=== PATIENT | female | born 1965 | race Hispanic/Latino ===

== ENCOUNTER 2018-07-10 15:19 | Outpatient (CLI) | payer OTHER | END 2018-07-10 15:20 | disposition home or self-care (01) | LOC: BICRAD 15:19 | PROVIDERS: ATTEND Family Medicine | DX: M25.511 Pain in right shoulder (principal); M19.011 Primary osteoarthritis, right shoulder ==

== ENCOUNTER 2018-07-24 14:52 | Outpatient (CLI) | payer OTHER | END 2018-07-24 14:53 | disposition home or self-care (01) | LOC: BICMAMMO 14:52 | PROVIDERS: ATTEND Family Medicine | DX: N63.0 Unspecified lump in unspecified breast (principal) | CPT/HCPCS: 77066 ==

== ENCOUNTER 2020-05-02 17:54 | Emergency (ER) | payer OTHER ==
[2020-05-03 14:06] LABS: SARS-CoV-2 MS2 Positive; SARS-CoV-2 N Gene Negative; SARS-CoV-2 S Gene Negative; SARS-CoV-2 orf1ab Negative
== END 2020-05-02 18:44 | disposition home or self-care (01) ==
LOC: ERS 17:54
DX: Z20.828 Contact with and (suspected) exposure to other viral communicable diseases (principal); I10 Essential (primary) hypertension; J45.909 Unspecified asthma, uncomplicated; E11.9 Type 2 diabetes mellitus without complications; F41.9 Anxiety disorder, unspecified; Z79.84 Long term (current) use of oral hypoglycemic drugs; Z79.899 Other long term (current) drug therapy
CPT/HCPCS: 87635; 99283; U0003

== ENCOUNTER 2020-09-06 17:33 | Emergency (ER) | payer OTHER ==
[2020-09-06 18:09] LABS: #Basophils 0.1 thou/uL (0.0-0.2); #Eosinphils 0.1 thou/uL (0.0-0.7); #Lymphocytes 1.7 thou/uL (1.20-3.40); #Monocytes 0.5 thou/uL (0.11-0.59); #Neutrophils 3.4 thou/uL (1.40-6.50); %Basophils 1.2 % (0.0-1.0); %Eosinophils 1.9 % (0.0-10.0); %Lymphocytes 29.7 % (21.0-51.0); %Monocytes 9.1 % (0.0-10.0); %Neutrophils 58.2 % (42.0-75.0); Hemoglobin 12.9 g/dL (12.0-16.0); Mean Corpuscular Hemoglobin 24.3 pg (27.0-31.0); Mean Corpuscular Volume 75.8 fL (78.0-98.0); Mean Platelet Volume 10.6 fL (7.4-10.4); Platelet Count 186 thou/uL (130-400); RBC Distribution Width 17.3 % (11.5-14.5); Red Blood Cell (RBC) Count 5.32 mill/uL (4.20-5.40); White Blood Cell (WBC) Count 5.8 thou/uL (4.8-10.8)
[2020-09-06 18:23] LABS: ALT (SGPT) 32 U/L (8-55); AST (SGOT) 31 U/L (5-34); Albumin 4.2 g/dL (3.5-5.0); Alkaline Phosphatase 142 U/L (40-110); Anion Gap 14 mmol/L (10-20); BUN (Urea Nitrogen) 12 mg/dL (9.8-20.1); Bilirubin, Total 0.3 mg/dL (0.2-1.2); CK (CPK) 65 U/L (29-168); Calc. Creatinine Clearance 0 mL/min (70-130); Calcium 9.4 mg/dL (7.8-10.44); Carbon Dioxide 23 mmol/L (22-29); Chloride 101 mmol/L (98-107); Estimated GFR-MDRD 59; Globulin 3.6 g/dL (2.4-3.5); Glucose 465 mg/dL (70-105); Potassium 4.2 mmol/L (3.5-5.1); Protein, Total 7.8 g/dL (6.0-8.3); Sodium 134 mmol/L (136-145)
[2020-09-06] MEDS ORDERED: Morphine 4 MG/ML VIAL ONE (18:39)
[2020-09-06] MEDS ORDERED: Ketorolac Tromethamine 30 MG/ML VIAL ONE (18:39)
--- NOTE | 2020-09-06 18:48 | RAD ---
PORTABLE CHEST: Date: 09-06-2020 Time: 6:09 p.m. History: Chest pain Comparison: 10-08-19 FINDINGS: The heart size is normal. The aorta is tortuous. The lungs are well expanded without focal areas of c onsolidation, pneumothoraces or pleural effusions. IMPRESSION: No radiographic evidence of acute cardiopulmonary process. POS: MZA
--- NOTE | 2020-09-11 14:07 | EKG ---
Test Reason : CP Blood Pressure : / mmHG Vent. Rate : 076 BPM Atrial Rate : 076 BPM P-R Int : 152 ms QRS Dur : 084 ms QT Int : 348 ms P-R-T Axes : 033 -02 027 degrees QTc Int : 391 ms Normal sinus rhythm Normal ECG Confirmed by SKINNY WADE ([id number]), order editor LANI KINNEY ([id number]) on 09/11/2020 2:07:12 PM Referred By: JEAN Confirmed By:SKINNY Renae
== END 2020-09-06 19:48 | disposition home or self-care (01) ==
LOC: ERS 17:33
DX: M54.12 Radiculopathy, cervical region (principal); I10 Essential (primary) hypertension; J45.909 Unspecified asthma, uncomplicated; E11.9 Type 2 diabetes mellitus without complications; F41.9 Anxiety disorder, unspecified; Z79.84 Long term (current) use of oral hypoglycemic drugs; Z79.899 Other long term (current) drug therapy
CPT/HCPCS: 71045; 80053; 82550; 84484; 85025; 93005; 94760; 96374; 96375; J1885; J2270

== ENCOUNTER 2020-09-20 12:37 | Emergency (ER) | payer OTHER ==
[2020-09-20 13:25] LABS: Hemoglobin 13.1 g/dL (12.0-16.0); Mean Corpuscular HGB CONC 32.2 g/dL (32.0-36.0); Mean Corpuscular Hemoglobin 24.1 pg (27.0-31.0); Mean Corpuscular Volume 74.8 fL (78.0-98.0); Mean Platelet Volume 12.4 fL (7.4-10.4); Platelet Count 171 thou/uL (130-400); RBC Distribution Width 16.5 % (11.5-14.5); Red Blood Cell (RBC) Count 5.44 mill/uL (4.20-5.40); White Blood Cell (WBC) Count 7.7 thou/uL (4.8-10.8)
[2020-09-20 13:26] LABS: Bilirubin Negative (Negative); Blood, Urine Negative (Negative); Clarity Clear (Clear); Glucose, Urine (Dipstick) Greater than 1000 mg/dL (Negative); Ketone, Urine Negative (Negative); Leukocyte Negative Leu/uL (Negative); Nitrite Negative (Negative); Protein, Urine (Dipstick) Negative (Neg-Trace); Specific Gravity, Urine 1.041 (1.002-1.036); Urobilinogen Normal mg/dL (Less than 2); pH, Urine 5.5 (5.0-9.0)
[2020-09-20 13:26] LABS: #Eosinphils 0.1 thou/uL (0.0-0.7); #Lymphocytes 1.8 thou/uL (1.20-3.40); #Monocytes 0.5 thou/uL (0.11-0.59); #Neutrophils 5.3 thou/uL (1.40-6.50); %Basophils 0.6 % (0.0-1.0); %Eosinophils 1.4 % (0.0-10.0); %Lymphocytes 23.3 % (21.0-51.0); %Monocytes 6.6 % (0.0-10.0); %Neutrophils 68.1 % (42.0-75.0)
[2020-09-20 13:44] LABS: Anisocytosis SLIGHT = 6-15 cells (100X) (0-5/hpf); Large Platelets SLIGHT; MDiff Complete? YES; Microcytosis SLIGHT = 6-15 cells (100X) (0-5/hpf); Platelet Morphology Comment Appears Adequate; Polychromasia SLIGHT = 2-3 cells (100X) (0-2/hpf)
[2020-09-20 13:47] LABS: ALT (SGPT) 35 U/L (8-55); AST (SGOT) 26 U/L (5-34); Albumin 4.3 g/dL (3.5-5.0); Alkaline Phosphatase 125 U/L (40-110); Anion Gap 13 mmol/L (10-20); BUN (Urea Nitrogen) 13 mg/dL (9.8-20.1); Bilirubin, Total 0.5 mg/dL (0.2-1.2); Calc. Creatinine Clearance 0 mL/min (70-130); Calcium 9.6 mg/dL (7.8-10.44); Carbon Dioxide 25 mmol/L (22-29); Chloride 99 mmol/L (98-107); Estimated GFR-MDRD 62; Globulin 3.5 g/dL (2.4-3.5); Glucose 364 mg/dL (70-105); Protein, Total 7.8 g/dL (6.0-8.3); Sodium 133 mmol/L (136-145)
[2020-09-20] MEDS ORDERED: Insulin Regular 300 UNITS/3 ML VIAL ONE (14:15)
[2020-09-20] MEDS ORDERED: Ibuprofen 800 MG TAB ONE (14:16)
== END 2020-09-20 15:49 | disposition home or self-care (01) ==
LOC: ERS 12:37
DX: E11.65 Type 2 diabetes mellitus with hyperglycemia (principal); I10 Essential (primary) hypertension; F41.9 Anxiety disorder, unspecified; J45.909 Unspecified asthma, uncomplicated; Z79.84 Long term (current) use of oral hypoglycemic drugs; Z79.899 Other long term (current) drug therapy
CPT/HCPCS: 36415; 36416; 80053; 81003; 85025; 96374; J1815

== ENCOUNTER 2020-09-24 13:49 | Outpatient (CLI) | payer OTHER ==
--- NOTE | 2020-09-24 18:53 | ULT ---
LIMITED SOFT TISSUE ULTRASOUND 09/24/20 PROVIDED CLINICAL HISTORY: Localized lump. FINDINGS: Limited sonographic interrogation was performed of the right upper arm in the region of palpable conc ryan. There is an ovoid, gently lobulated mass isoechoic to subcutaneous fat measuring at least 3.1 x 1.2 x 1.8 cm in greatest dimensions. This is immediately adjacent to/overlies the right cephalic vei n. IMPRESSION: 3.1 cm mass in the region of palpable concern, possibly a lipoma. Further evaluation with MRI may be useful as clinically indicated. POS: RAMON
== END 2020-09-24 13:50 | disposition home or self-care (01) ==
LOC: BICULT 13:49
PROVIDERS: ATTEND Internal Medicine Nephrology
DX: R22.31 Localized swelling, mass and lump, right upper limb (principal)
CPT/HCPCS: 76999

== ENCOUNTER 2020-10-28 11:47 | Outpatient (CLI) | payer OTHER ==
--- NOTE | 2020-10-28 12:48 | MMO ---
Bilateral MAMMO Bilat Screen DDI. CLINICAL HISTORY: Patient is 55 years old and is seen for screening. The patient has no family history of breast cancer. The patient has no personal history of cancer. VIEWS: The views performed were: bilateral craniocaudal and bilateral mediolateral oblique. FILMS COMPARED: The present examination has been compared to prior imaging studies performed at [facility] on 08/30/2011, 07/04/2012, 01/18/2016 and 07/24/2018. This study has been interpreted with the assistance of computer-aided detection. MAMMOGRAM FINDINGS: There are scattered fibroglandular densities. There are calcifications with grouped or clustered distribution seen in the outer region of the left breast. In the right breast, there are no suspicious masses, calcifications or areas of architectural distortion. IMPRESSION: CALCIFICATIONS IN THE LEFT BREAST REQUIRE ADDITIONAL EVALUATION. RECOMMEND DIAGNOSTIC MAMMOGRAM. ACR BI-RADS Category 0 - Incomplete: Need additional imaging evaluation. [facility] will notify the patient of the need for additional imaging services. MAMMOGRAPHY NOTE: 1. A negative mammogram report should not delay a biopsy if a dominant of clinically suspicious mass is present. 2. Approximately 10% to 15% of breast cancers are not detected by mammography. 3. Adenosis and dense breasts may obscure an underlying neoplasm. Reported by: ESDRAS KOO MD Electonically Signed: [id number]
== END 2020-10-28 11:48 | disposition home or self-care (01) ==
LOC: BICMAMMO 11:47
PROVIDERS: ATTEND Family Medicine
DX: Z12.31 Encounter for screening mammogram for malignant neoplasm of breast (principal); R92.1 Mammographic calcification found on diagnostic imaging of breast
CPT/HCPCS: 77067

== ENCOUNTER 2020-10-30 14:03 | Emergency (ER) | payer OTHER ==
[2020-10-30] MEDS ORDERED: Ketorolac Tromethamine 30 MG/ML VIAL ONE (14:35)
--- NOTE | 2020-10-30 16:20 | RAD ---
Exam:Left hand 3 views HISTORY: Pain. Injury. Fall. Bruising. COMPARISON: None FINDINGS: Nondisplaced fracture involving the proximal phalanx of the fifth digit. Associated soft ti ssue swelling. Additional fractures are not appreciated. Preserved joint spaces. IMPRESSION: Nondisplaced fracture of the proximal phalanx of the fifth digit. Correlate for point ten derness.
--- NOTE | 2020-10-30 16:21 | RAD ---
Exam: Thoracic spine 3 views HISTORY: Pain. Fall. FINDINGS: AP, lateral and swimmer's view of the thoracic spine demonstrate 12 thoracic type vertebra. Vertebral body height is maintained. No fracture. Disc space heights are preserved. No malalignment. IMPRESSION: No fracture. If there is pain or point tenderness, consider additional imaging.
[2020-10-30] MEDS ORDERED: HYDROcodone/Acetaminophen 5/325 mg Tablet ONE (16:56)
== END 2020-10-30 17:12 | disposition home or self-care (01) ==
LOC: ERS 14:03
DX: S62.647A Nondisplaced fracture of proximal phalanx of left little finger, initial encounter for closed fracture (principal); M54.6 Pain in thoracic spine; W01.0XXA Fall on same level from slipping, tripping and stumbling without subsequent striking against object, initial encounter; Z79.899 Other long term (current) drug therapy; Z79.84 Long term (current) use of oral hypoglycemic drugs; Z79.52 Long term (current) use of systemic steroids; I10 Essential (primary) hypertension; E11.9 Type 2 diabetes mellitus without complications; J45.909 Unspecified asthma, uncomplicated; Z87.891 Personal history of nicotine dependence
CPT/HCPCS: 72072; 96372; J1885

== ENCOUNTER 2021-01-05 13:55 | Outpatient (CLI) | payer OTHER ==
--- NOTE | 2021-01-05 14:18 | MMO ---
Left Breast MAMMO Unilat Diag DDI LT+DERRELL. CLINICAL HISTORY: Patient is 55 years old and is seen for additional evaluation requested from prior study. The patient has no family history of breast cancer. The patient has no personal history of cancer. VIEWS: The views performed were: left craniocaudal spot compression magnification; left mediolateral spot compression magnification; and left mediolateral with tomosynthesis. FILMS COMPARED: The present examination has been compared to prior imaging studies performed at [facility] on 07/04/2012, 01/18/2016, 07/24/2018 and 10/28/2020. This study has been interpreted with the assistance of computer-aided detection. MAMMOGRAM FINDINGS: There are scattered fibroglandular densities. Calcifications outer left breast are confirmed to be benign skin calcifications on tomosynthesis. There are no suspicious masses, suspicious calcifications, or new areas of architectural distortion. IMPRESSION: THERE IS NO MAMMOGRAPHIC EVIDENCE OF MALIGNANCY. A ROUTINE FOLLOW-UP MAMMOGRAM IN 1 YEAR IS RECOMMENDED. THE RESULTS OF THIS EXAM WERE SENT TO THE PATIENT. ACR BI-RADS Category 2 - Benign finding MAMMOGRAPHY NOTE: 1. A negative mammogram report should not delay a biopsy if a dominant of clinically suspicious mass is present. 2. Approximately 10% to 15% of breast cancers are not detected by mammography. 3. Adenosis and dense breasts may obscure an underlying neoplasm. Reported by: KARIE ISAACS MD Electonically Signed: [id number]
== END 2021-01-05 13:56 | disposition home or self-care (01) ==
LOC: BICMAMMO 13:55
PROVIDERS: ATTEND Family Medicine
DX: R92.1 Mammographic calcification found on diagnostic imaging of breast (principal)
CPT/HCPCS: G0279

== ENCOUNTER 2021-07-26 16:54 | Emergency (ER) | payer OTHER ==
[2021-07-26 17:30] LABS: #Basophils 0.1 thou/uL (0.0-0.2); #Eosinphils 0.1 thou/uL (0.0-0.7); #Lymphocytes 2.1 thou/uL (1.20-3.40); #Monocytes 0.6 thou/uL (0.11-0.59); #Neutrophils 4.5 thou/uL (1.40-6.50); %Basophils 1.1 % (0.0-1.0); %Eosinophils 0.9 % (0.0-10.0); %Lymphocytes 28.7 % (21.0-51.0); %Monocytes 8.6 % (0.0-10.0); %Neutrophils 60.7 % (42.0-75.0); Mean Corpuscular HGB CONC 33.4 g/dL (32.0-36.0); Mean Corpuscular Hemoglobin 27.8 pg (27.0-31.0); Mean Corpuscular Volume 83.2 fL (78.0-98.0); Mean Platelet Volume 10.3 fL (7.4-10.4); Platelet Count 213 thou/uL (130-400); RBC Distribution Width 14.6 % (11.5-14.5); Red Blood Cell (RBC) Count 5.04 mill/uL (4.20-5.40); White Blood Cell (WBC) Count 7.4 thou/uL (4.8-10.8)
[2021-07-26 18:00] LABS: Albumin 4.2 g/dL (3.5-5.0)
[2021-07-26 18:01] LABS: Chloride 104 mmol/L (98-107); Potassium 3.9 mmol/L (3.5-5.1); Sodium 136 mmol/L (136-145)
[2021-07-26 18:02] LABS: Calcium 9.4 mg/dL (7.8-10.44)
[2021-07-26 18:03] LABS: Globulin 3.3 g/dL (2.4-3.5); Protein, Total 7.5 g/dL (6.0-8.3)
[2021-07-26 18:04] LABS: Anion Gap 12 mmol/L (10-20); Bilirubin, Total 0.4 mg/dL (0.2-1.2); Carbon Dioxide 24 mmol/L (22-29)
[2021-07-26 18:05] LABS: Alkaline Phosphatase 123 U/L (40-110)
[2021-07-26 18:06] LABS: Calc. Creatinine Clearance 0 mL/min (70-130); Glucose 165 mg/dL (70-105)
[2021-07-26 18:07] LABS: BUN (Urea Nitrogen) 21 mg/dL (9.8-20.1)
[2021-07-26 18:08] LABS: ALT (SGPT) 25 U/L (8-55); AST (SGOT) 22 U/L (5-34); Lipase 21 U/L (8-78)
[2021-07-26] MEDS ORDERED: Aspirin Chewable 81 MG TAB ONE (19:25)
[2021-07-26] MEDS ORDERED: Aspirin 325 MG TAB ONE (19:25)
[2021-07-26] MEDS ORDERED: Ondansetron PF 4 MG/2 ML Vial ONE (19:25)
[2021-07-26] MEDS ORDERED: Morphine 4 MG/ML VIAL ONE (19:25)
[2021-07-26] MEDS ORDERED: Ketorolac Tromethamine 30 MG/ML VIAL ONE (19:25)
[2021-07-26 21:00] LABS: Troponin I Less than 0.010 ng/mL (< 0.028)
== END 2021-07-26 21:20 | disposition home or self-care (01) ==
LOC: ERS 16:54
DX: K82.8 Other specified diseases of gallbladder (principal); R07.89 Other chest pain; I10 Essential (primary) hypertension; J45.909 Unspecified asthma, uncomplicated; E11.9 Type 2 diabetes mellitus without complications; F17.210 Nicotine dependence, cigarettes, uncomplicated; Z79.84 Long term (current) use of oral hypoglycemic drugs; Z79.899 Other long term (current) drug therapy; Z79.52 Long term (current) use of systemic steroids
CPT/HCPCS: 36415; 71045; 76705; 80053; 83690; 84484; 85025; 93005; 96374; 96375; J1885; J2270; J2405

== ENCOUNTER 2021-08-22 08:21 | Emergency (ER) | payer OTHER ==
[2021-08-22] MEDS ORDERED: Ondansetron PF 4 MG/2 ML Vial ONE (09:03)
[2021-08-22 09:26] LABS: #Eosinphils 0.1 thou/uL (0.0-0.7); #Lymphocytes 0.9 thou/uL (1.20-3.40); #Monocytes 0.6 thou/uL (0.11-0.59); #Neutrophils 4.4 thou/uL (1.40-6.50); %Basophils 0.4 % (0.0-1.0); %Eosinophils 1.5 % (0.0-10.0); %Lymphocytes 15.5 % (21.0-51.0); %Neutrophils 72.6 % (42.0-75.0); Hemoglobin 13.5 g/dL (12.0-16.0); Mean Corpuscular HGB CONC 32.8 g/dL (32.0-36.0); Mean Corpuscular Hemoglobin 28.3 pg (27.0-31.0); Mean Corpuscular Volume 86.4 fL (78.0-98.0); Mean Platelet Volume 10.4 fL (7.4-10.4); Platelet Count 147 thou/uL (130-400); RBC Distribution Width 14.9 % (11.5-14.5); Red Blood Cell (RBC) Count 4.75 mill/uL (4.20-5.40); White Blood Cell (WBC) Count 6.1 thou/uL (4.8-10.8)
[2021-08-22] MEDS ORDERED: Acetaminophen 500 MG TAB ONE ×2 (09:45→09:46)
[2021-08-22 09:49] LABS: ALT (SGPT) 25 U/L (8-55); AST (SGOT) 26 U/L (5-34); Albumin 4.1 g/dL (3.5-5.0); Alkaline Phosphatase 119 U/L (40-110); Anion Gap 11 mmol/L (10-20); BUN (Urea Nitrogen) 11 mg/dL (9.8-20.1); Bilirubin, Total 0.3 mg/dL (0.2-1.2); CRP (Inflammatory) 1.12 mg/dL (= or < 0.5); Calc. Creatinine Clearance 0 mL/min (70-130); Calcium 8.7 mg/dL (7.8-10.44); Carbon Dioxide 24 mmol/L (22-29); Chloride 107 mmol/L (98-107); Globulin 3.3 g/dL (2.4-3.5); Glucose 227 mg/dL (70-105); Potassium 4.1 mmol/L (3.5-5.1); Protein, Total 7.4 g/dL (6.0-8.3); Sodium 138 mmol/L (136-145)
[2021-08-22 10:46] LABS: SARS-CoV-2 NAA Rapid Test Not Detected (NotDetected)
[2021-08-22] MEDS ORDERED: Dexamethasone 10 MG/ML VIAL ONE (10:48)
== END 2021-08-22 12:06 | disposition home or self-care (01) ==
LOC: ERS 08:21
DX: B34.9 Viral infection, unspecified (principal); R11.2 Nausea with vomiting, unspecified; J45.909 Unspecified asthma, uncomplicated; E11.9 Type 2 diabetes mellitus without complications; I10 Essential (primary) hypertension; Z87.891 Personal history of nicotine dependence; Z79.899 Other long term (current) drug therapy; Z79.4 Long term (current) use of insulin
CPT/HCPCS: 71045; 80053; 84484; 85025; 85379; 86140; 96374; 96375; J1100; J2405; U0002

== ENCOUNTER 2021-12-09 15:52 | Emergency (ER) | payer OTHER ==
[2021-12-09 16:22] LABS: #Basophils 0.1 thou/uL (0.0-0.2); #Eosinphils 0.1 thou/uL (0.0-0.7); #Lymphocytes 1.8 thou/uL (1.20-3.40); #Monocytes 0.4 thou/uL (0.11-0.59); #Neutrophils 4.2 thou/uL (1.40-6.50); %Basophils 1.6 % (0.0-1.0); %Eosinophils 1.7 % (0.0-10.0); %Lymphocytes 27.3 % (21.0-51.0); %Monocytes 6.2 % (0.0-10.0); %Neutrophils 63.1 % (42.0-75.0); Hemoglobin 14.6 g/dL (12.0-16.0); Mean Corpuscular HGB CONC 33.3 g/dL (32.0-36.0); Mean Corpuscular Hemoglobin 28.4 pg (27.0-31.0); Mean Corpuscular Volume 85.3 fL (78.0-98.0); Mean Platelet Volume 10.1 fL (7.4-10.4); Platelet Count 184 thou/uL (130-400); RBC Distribution Width 13.8 % (11.5-14.5); Red Blood Cell (RBC) Count 5.15 mill/uL (4.20-5.40); White Blood Cell (WBC) Count 6.7 thou/uL (4.8-10.8)
[2021-12-09 16:41] LABS: ALT (SGPT) 28 U/L (8-55); AST (SGOT) 27 U/L (5-34); Alkaline Phosphatase 119 U/L (40-110); Anion Gap 12 mmol/L (10-20); BUN (Urea Nitrogen) 11 mg/dL (9.8-20.1); Bilirubin, Total 0.4 mg/dL (0.2-1.2); Calc. Creatinine Clearance 0 mL/min (70-130); Calcium 9.6 mg/dL (7.8-10.44); Carbon Dioxide 27 mmol/L (22-29); Chloride 102 mmol/L (98-107); Globulin 3.6 g/dL (2.4-3.5); Glucose 246 mg/dL (70-105); Potassium 3.9 mmol/L (3.5-5.1); Protein, Total 7.6 g/dL (6.0-8.3); Sodium 137 mmol/L (136-145)
== END 2021-12-09 17:39 | disposition left against medical advice (07) ==
LOC: ERS 15:52
DX: Z53.21 Procedure and treatment not carried out due to patient leaving prior to being seen by health care provider (principal)
CPT/HCPCS: 36415; 80053; 84484; 85025; 93005

== ENCOUNTER 2023-11-27 15:08 | Outpatient (CLI) | payer OTHER | END 2023-11-27 15:09 | disposition home or self-care (01) | LOC: BICRAD 15:08 | PROVIDERS: ATTEND Student in an Organized Health Care Education/Training Program | DX: M25.561 Pain in right knee (principal); M17.11 Unilateral primary osteoarthritis, right knee ==

== ENCOUNTER 2024-01-16 08:09 | Outpatient (CLI) | payer OTHER | END 2024-01-16 08:10 | disposition home or self-care (01) | LOC: BICRAD 08:09 | PROVIDERS: ATTEND Student in an Organized Health Care Education/Training Program | DX: M79.661 Pain in right lower leg (principal); M85.861 Other specified disorders of bone density and structure, right lower leg; Z98.890 Other specified postprocedural states ==

== ENCOUNTER 2024-01-24 19:27 | Observation (INO) | payer OTHER ==
[2024-01-24 20:25] LABS: #Basophils 0.1 thou/uL (0.0-0.2); #Eosinphils 0.1 thou/uL (0.0-0.7); #Monocytes 0.5 thou/uL (0.11-0.59); #Neutrophils 3.3 thou/uL (1.40-6.50); %Basophils 1.3 % (0.0-1.0); %Eosinophils 1.7 % (0.0-10.0); %Lymphocytes 26.2 % (21.0-51.0); %Neutrophils 60.6 % (42.0-75.0); Hematocrit 38.5 % (36.0-47.0); Hemoglobin 13.1 g/dL (12.0-16.0); Mean Corpuscular Hemoglobin 29.2 pg (27.0-31.0); Mean Corpuscular Volume 85.9 fl (78.0-98.0); Mean Platelet Volume 11.6 fL (7.4-10.4); Platelet Count 184 10x3/uL (130-400); RBC Distribution Width 13.4 % (11.5-14.5); Red Blood Cell (RBC) Count 4.48 mill/uL (4.20-5.40); White Blood Cell (WBC) Count 5.4 10x3/uL (4.8-10.8)
[2024-01-24 20:50] LABS: Prothrombin Time 13.1 sec (12.0-14.7)
[2024-01-24 20:51] LABS: ALT (SGPT) 9 U/L (8-55); AST (SGOT) 11 U/L (5-34); Albumin 4.1 g/dL (3.5-5.0); Alkaline Phosphatase 97 U/L (40-110); Anion Gap 12 mmol/L (10-20); BUN (Urea Nitrogen) 17 mg/dL (9.8-20.1); Bilirubin, Total 0.5 mg/dL (0.2-1.2); Calc. Creatinine Clearance 0 mL/min (70-130); Calcium 9.4 mg/dL (7.8-10.44); Carbon Dioxide 25 mmol/L (22-29); Chloride 102 mmol/L (98-107); Estimated GFR 82; Globulin 2.9 g/dL (2.4-3.5); Glucose 359 mg/dL (70-105); Magnesium 1.8 mg/dL (1.6-2.6); PTT 28.3 sec (22.9-36.1); Potassium 3.7 mmol/L (3.5-5.1); Sodium 135 mmol/L (136-145)
[2024-01-24 20:54] LABS: Troponin I Less than 0.010 ng/mL (< 0.028)
[2024-01-24] MEDS ORDERED: Ondansetron ODT 4 MG TAB SL PRN (23:15)
[2024-01-24] MEDS ORDERED: Acetaminophen 325 MG TAB PO PRN (23:15)
[2024-01-24] MEDS ORDERED: Ondansetron PF 4 MG/2 ML Vial IVP PRN (23:15)
[2024-01-24] MEDS ORDERED: Dextrose 50% Abboject 50 ML SYRINGE SLOW IVP PRN (23:40)
[2024-01-24] MEDS ORDERED: Glucagon 1 MG/ML KIT IM PRN (23:40)
[2024-01-24] MEDS ORDERED: Dextrose 5% in Water 1,000 ML IV PRN (23:40)
[2024-01-24 23:45] VITALS: BMI 23.0
[2024-01-25] MEDS ORDERED: Albuterol 200 PUFF (6.7GM INHALER) INH PRN (00:15)
[2024-01-25] MEDS ORDERED: Semaglutide [Ozempic] 0.25 MG/0.368 ML Pen.Injctr SC SCH (00:30)
[2024-01-25] MEDS: Aspirin 325 mg Enteric Coated Tablet PO SCH (00:33)
[2024-01-25] MEDS: HumaLOG 300 UNITS/3 ML VIAL SC PRN ×2 (00:34→06:01)
[2024-01-25 01:11] LABS: Acetaminophen Less than 10 mcg/mL (10.0-30.0); Alcohol Less than 10.0 mg/dL (Less than 10); Salicylate Less than 8.0 mg/dL (15.0-30.0)
[2024-01-25 01:16] LABS: Troponin I 0.018 ng/mL (< 0.028)
[2024-01-25 01:31] LABS: Amphetamine Not Detected (NotDetected); Barbiturates Screen Not Detected (NotDetected); Benzodiazepine Screen Not Detected (NotDetected); Cocaine Metabolite Screen Detected (NotDetected); Methadone Not Detected (NotDetected); Methamphetamine Not Detected (NotDetected); Opiate Screen Not Detected (NotDetected); Oxycodone Screen Not Detected (NotDetected); Phencyclidine (PCP) Not Detected (NotDetected); THC/Cannabinoid Screen Not Detected (NotDetected); Tricyclic Screen Not Detected (NotDetected)
[2024-01-25 02:48] LABS: #Basophils 0.1 thou/uL (0.0-0.2); #Eosinphils 0.1 thou/uL (0.0-0.7); #Monocytes 0.5 thou/uL (0.11-0.59); #Neutrophils 2.7 thou/uL (1.40-6.50); %Basophils 1.2 % (0.0-1.0); %Eosinophils 1.6 % (0.0-10.0); %Lymphocytes 35.4 % (21.0-51.0); %Monocytes 9.5 % (0.0-10.0); %Neutrophils 52.1 % (42.0-75.0); Hematocrit 37.1 % (36.0-47.0); Hemoglobin 12.5 g/dL (12.0-16.0); Mean Corpuscular HGB CONC 33.7 g/dL (32.0-36.0); Mean Corpuscular Hemoglobin 28.9 pg (27.0-31.0); Mean Corpuscular Volume 85.9 fl (78.0-98.0); Mean Platelet Volume 11.8 fL (7.4-10.4); Platelet Count 188 10x3/uL (130-400); RBC Distribution Width 13.4 % (11.5-14.5); Red Blood Cell (RBC) Count 4.32 mill/uL (4.20-5.40); White Blood Cell (WBC) Count 5.1 10x3/uL (4.8-10.8)
[2024-01-25 03:14] LABS: ALT (SGPT) 9 U/L (8-55); AST (SGOT) 10 U/L (5-34); Albumin 3.6 g/dL (3.5-5.0); Alkaline Phosphatase 83 U/L (40-110); Anion Gap 14 mmol/L (10-20); BUN (Urea Nitrogen) 12 mg/dL (9.8-20.1); Bilirubin, Total 0.3 mg/dL (0.2-1.2); Calc. Creatinine Clearance 89 mL/min (70-130); Calcium 9.1 mg/dL (7.8-10.44); Carbon Dioxide 22 mmol/L (22-29); Chloride 106 mmol/L (98-107); Cholesterol 188 mg/dl (< 200 Desired); Estimated GFR 97; Globulin 2.8 g/dL (2.4-3.5); Glucose 185 mg/dL (70-105); HDL Cholesterol 63 mg/dL (>60 Neg Risk); LDL Cholesterol, Calculated 113 mg/dL; Potassium 3.3 mmol/L (3.5-5.1); Protein, Total 6.4 g/dL (6.0-8.3); Sodium 139 mmol/L (136-145); Triglycerides 60 mg/dL (Less than 150)
[2024-01-25 03:17] LABS: Troponin I Less than 0.010 ng/mL (< 0.028)
[2024-01-25] MEDS: Potassium Chloride 20 MEQ TAB PO SCH (04:24)
[2024-01-25 05:54] LABS: Hemoglobin A1c 9.2 % (4.0-6.0)
[2024-01-25 06:34] LABS: Phosphorus 5.1 mg/dL (2.3-4.7)
[2024-01-25] MEDS: Mometasone 200 MCG/Formoterol 5 MCG 120 PUFF INHALER INH SCH (07:06)
[2024-01-25] MEDS ORDERED: Atorvastatin Calcium 20 MG TAB PO SCH (09:00)
[2024-01-25] MEDS ORDERED: Gabapentin 100 MG CAP PO SCH (09:00)
[2024-01-25] MEDS: Aspirin 81 mg Enteric Coated Tablet PO SCH (09:14)
[2024-01-25] MEDS: Enoxaparin 40 MG (0.4 mL) SYRINGE SC SCH (09:15)
[2024-01-25] MEDS: Empagliflozin 25 MG TAB PO SCH (09:15)
[2024-01-25] MEDS: Atorvastatin Calcium 40 MG TAB PO SCH (09:15)
[2024-01-25] MEDS: Lidocaine 4% Patch TD SCH (10:28)
[2024-01-25] MEDS: Diclofenac 1% 50 GM TOPICAL GEL TP SCH (10:28)
[2024-01-25 12:00] VITALS: BP 162/83; TEMP 98.1
[2024-01-25] MEDS ORDERED: Insulin Glargine 30 UNITS/0.3 ML VIAL SC SCH (21:00)
[2024-01-25] MEDS ORDERED: Transdermal Patch Removal TOP SCH (21:00)
== END 2024-01-25 14:25 | disposition home or self-care (01) ==
LOC: ERS 19:27 → 2SE 22:58
PROVIDERS: ADMIT Family Medicine; ATTEND Family Medicine
DX: E87.1 Hypo-osmolality and hyponatremia (principal); F14.90 Cocaine use, unspecified, uncomplicated; E11.65 Type 2 diabetes mellitus with hyperglycemia; I10 Essential (primary) hypertension; J45.909 Unspecified asthma, uncomplicated; R53.1 Weakness; Z79.82 Long term (current) use of aspirin; Z79.84 Long term (current) use of oral hypoglycemic drugs; Z79.85 Long-term (current) use of injectable non-insulin antidiabetic drugs; Z79.52 Long term (current) use of systemic steroids
CPT/HCPCS: 36415; 36416; 70496; 70498; 70551; 71045; 80053; 80061; 80306; 80307; 83036; 83735; 84100; 84439; 84443; 84484; 85025; 85610; 85730; 93005; 96372; G0378; J1650; J1815